=== PATIENT | female | born 1990 | race Caucasian/White ===

== ENCOUNTER 2018-05-13 13:15 | Emergency (ER) | payer OTHER ==
[~2018-05-13] VITALS: Ht 162.6 cm; Wt 68.0 kg
[2018-05-13 13:15] VITALS: BP_SYST 97
[2018-05-13 14:05] VITALS: BP_SYST 112
== END 2018-05-13 14:05 ==
LOC: SED 13:15
DX: Z02.89 Encounter for other administrative examinations (principal); F31.9 Bipolar disorder, unspecified; F20.9 Schizophrenia, unspecified
CPT/HCPCS: 99283